=== PATIENT | female | born 1985 | race African-American/Black ===

== ENCOUNTER 2020-10-20 17:05 | Emergency (ER) | payer MEDICAID, OTHER ==
[~2020-10-20] VITALS: Ht 160 cm; Wt 62.0 kg
[2020-10-20] MEDS: ACETAMINOPHEN 500MG TABLET PO ONE (19:13)
[2020-10-20 19:23] LABS: CLARITY URINE CLEAR (CLEAR); COLOR URINE YELLOW (YELLOW); KETONES URINE TRACE (NEGATIVE); LEUKOCYTE ESTERASE URINE TRACE (NEGATIVE); NITRITE URINE NEGATIVE (NEGATIVE); OCCULT BLOOD URINE NEGATIVE (NEGATIVE); PROTEIN URINE TRACE (NEGATIVE); SPECIFIC GRAVITY URINE 1.029 (1.005-1.030)
[2020-10-20 23:03] VITALS: BP 112/70
== END 2020-10-20 23:10 | disposition home or self-care (01) ==
LOC: ER 17:05
DX: O23.41 Unspecified infection of urinary tract in pregnancy, first trimester (principal); Z3A.18 18 weeks gestation of pregnancy
CPT/HCPCS: 76805; 81003; 99284

== ENCOUNTER 2021-03-07 12:19 | Inpatient (IN) | payer MEDICAID ==
[~2021-03-07] VITALS: Ht 160 cm; Wt 72.1 kg
[2021-03-07] MEDS ORDERED: DEXT 5%/LR + PITOCIN 20UNITS/L 1,000 ML IV SCH ×2 (13:30→21:15)
[2021-03-07] MEDS ORDERED: NALOXONE HCL 0.4 MG/ML 1ML VIAL IM PRN (13:30)
[2021-03-07] MEDS ORDERED: RHO(D) IMMUNE GLOBULIN 300 MCG/SYR IM SCH (13:30)
[2021-03-07] MEDS ORDERED: CARBOPROST TROMETHAMINE 250 MCG/ML AMPUL IM PRN (13:30)
[2021-03-07] MEDS ORDERED: LACTATED RINGERS 1,000 ML IV SCH (13:30)
[2021-03-07] MEDS ORDERED: METHYLERGONOVINE MALEATE 0.2 MG/ML IM PRN (13:30)
[2021-03-07 14:04] LABS: CLARITY URINE CLEAR (CLEAR); COLOR URINE YELLOW (YELLOW); KETONES URINE TRACE (NEGATIVE); LEUKOCYTE ESTERASE URINE NEGATIVE (NEGATIVE); NITRITE URINE NEGATIVE (NEGATIVE); OCCULT BLOOD URINE NEGATIVE (NEGATIVE); PH URINE 6.5 (4.5-8.0); PROTEIN URINE NEGATIVE (NEGATIVE); SPECIFIC GRAVITY URINE 1.026 (1.005-1.030)
[2021-03-07 14:16] LABS: BASOPHILS % 0.5 % (0.0-2.0); EOSINOPHILS % 0.6 % (0.0-5.0); HEMATOCRIT. 36.2 % (36.0-48.0); HEMOGLOBIN. 12.3 g/dL (12.0-16.0); LYMPHOCYTES % 18.3 % (20.0-50.0); MEAN CORPUSCULAR HEMOGLOBIN 34.2 pg (28.0-32.0); MEAN CORPUSCULAR VOLUME 100.5 fL (81.0-99.0); MEAN PLATELET VOLUME 9.2 fl (7.4-10.4); MONOCYTES % 3.8 % (2.0-8.0); NEUTROPHILS % 76.8 % (40.0-76.0); PLATELET 209 x1000/uL (130-400); RED CELL DISTRIBUTION WIDTH 13.9 % (11.6-14.6)
[2021-03-07 14:27] LABS: INR 0.9; PARTIAL THROMBOPLASTIN TIME 25.6 sec (23.4-31.0); PROTHROMBIN TIME 9.8 sec (9.6-11.0)
[2021-03-07 14:44] LABS: *AMPHETAMINES SCREEN URINE NEGATIVE (NEGATIVE); *BARBITURATES SCREEN URINE NEGATIVE (NEGATIVE); *BENZODIAZEPINES SCREEN URINE NEGATIVE (NEGATIVE)
[2021-03-07 14:45] LABS: *COCAINE SCREEN URINE NEGATIVE (NEGATIVE); CANNABINOID URINE SCREEN NEGATIVE (NEGATIVE); METHADONE URINE SCREEN NEGATIVE (NEGATIVE); OPIATES URINE SCREEN NEGATIVE (NEGATIVE); PHENCYCLIDINE URINE SCREEN NEGATIVE (NEGATIVE)
[2021-03-07 15:25] LABS: HEPATITIS B SURFACE ANTIGEN NEGATIVE
[2021-03-07] MEDS ORDERED: CITRIC ACID/SODIUM CITRATE SOLN 30ML UDC PO NR (19:00)
[2021-03-07] MEDS ORDERED: MORPHINE SULFATE/PF 1MG/ML 10ML AMP ONE (19:26)
[2021-03-07] MEDS ORDERED: KETOROLAC 60MG/2ML VIAL IM ONE (19:28)
[2021-03-07] MEDS ORDERED: ONDANSETRON HCL 4MG/2ML INJ ONE (19:28)
[2021-03-07] MEDS ORDERED: DEXAMETHASONE 4MG/ML 1ML VIAL ONE (19:28)
[2021-03-07] MEDS ORDERED: EPHEDRINE SULFATE 50MG/ML VIAL ONE (19:29)
[2021-03-07] MEDS ORDERED: CEFAZOLIN SODIUM 1000MG/VIAL ONE (19:29)
[2021-03-07] MEDS ORDERED: OXYTOCIN 10 UNITS/ML 1ML ONE ×2 (19:29→19:34)
[2021-03-07] MEDS ORDERED: NALOXONE HCL 0.4 MG/ML 1ML VIAL IV PRN ×2 (20:32→20:45)
[2021-03-07] MEDS ORDERED: DIPHENHYDRAMINE 50MG/ML VIAL IM PRN (20:45)
[2021-03-07] MEDS ORDERED: HYDROCODONE/ACETAMINOPHEN 5/325MG TABLET PO PRN (21:15)
[2021-03-07] MEDS ORDERED: IBUPROFEN 400MG TABLET PO PRN (21:15)
[2021-03-07] MEDS ORDERED: ONDANSETRON HCL 4MG/2ML INJ IV PRN (21:15)
[2021-03-07] MEDS ORDERED: LANOLIN OINT 7GM TUBE TOP PRN (21:15)
[2021-03-07] MEDS ORDERED: BISACODYL 10MG SUPP PR PRN (21:15)
[2021-03-07 23:00] VITALS: BP 114/80
[2021-03-07 23:30] VITALS: BP 119/64
[2021-03-07] MEDS: DIPHENHYDRAMINE 50MG/ML VIAL IV PRN (23:53)
[2021-03-08 00:05] VITALS: BP 115/78
[2021-03-08 04:00] VITALS: BP 112/64
[2021-03-08 06:36] LABS: BASOPHILS % 0.3 % (0.0-2.0); EOSINOPHILS % 0.1 % (0.0-5.0); HEMATOCRIT. 32.2 % (36.0-48.0); HEMOGLOBIN. 11.1 g/dL (12.0-16.0); LYMPHOCYTES % 8.5 % (20.0-50.0); MEAN CORPUSCULAR HEMOGLOBIN 34.5 pg (28.0-32.0); MEAN CORPUSCULAR VOLUME 99.8 fL (81.0-99.0); MEAN PLATELET VOLUME 8.9 fl (7.4-10.4); MONOCYTES % 3.7 % (2.0-8.0); NEUTROPHILS % 87.4 % (40.0-76.0); PLATELET 171 x1000/uL (130-400); RED BLOOD CELL COUNT 3.23 mill/uL (4.2-5.4); RED CELL DISTRIBUTION WIDTH 13.6 % (11.6-14.6)
[2021-03-08 08:00] VITALS: BP 101/51
[2021-03-08] MEDS ORDERED: DIPHENHYDRAMINE 50MG/ML VIAL IV PRN (08:45)
[2021-03-08] MEDS ORDERED: NALOXONE HCL 0.4MG/ML VIAL IV PRN (08:45)
[2021-03-08] MEDS: DIPHENHYDRAMINE 50MG/ML VIAL IV PRN ×2 (09:10→09:12)
[2021-03-08] MEDS: DIPHENHYDRAMINE 25MG CAPSULE PO PRN ×2 (13:10→20:58)
[2021-03-08] MEDS: IBUPROFEN 800MG TABLET PO PRN ×2 (16:36→22:47)
[2021-03-08 16:57] VITALS: BP 96/50
[2021-03-08 19:30] VITALS: BP 102/59
[2021-03-08] MEDS: DOCUSATE SODIUM 100MG CAPSULE PO SCH (20:58)
[2021-03-08] MEDS: SIMETHICONE 80MG TABLET CHEW PO SCH (20:59)
[2021-03-09 04:00] VITALS: BP 111/64
[2021-03-09] MEDS: FERROUS SULFATE 325MG TABLET PO SCH ×3 (08:06→17:30)
[2021-03-09] MEDS: IBUPROFEN 800MG TABLET PO PRN ×3 (08:06→22:34)
[2021-03-09] MEDS: SIMETHICONE 80MG TABLET CHEW PO SCH ×4 (08:07→20:49)
[2021-03-09 08:21] VITALS: BP 116/76
[2021-03-09 16:30] VITALS: BP 137/68
[2021-03-09 20:00] VITALS: BP 103/62
[2021-03-09] MEDS: DOCUSATE SODIUM 100MG CAPSULE PO SCH (20:48)
[2021-03-09] MEDS: DIPHENHYDRAMINE 25MG CAPSULE PO PRN (22:34)
[2021-03-09 23:57] VITALS: BP 107/51
[2021-03-10 04:00] VITALS: BP 111/62
[2021-03-10] MEDS: IBUPROFEN 800MG TABLET PO PRN (04:33)
[2021-03-10] MEDS: SIMETHICONE 80MG TABLET CHEW PO SCH (08:22)
[2021-03-10] MEDS: FERROUS SULFATE 325MG TABLET PO SCH (08:22)
[2021-03-10 08:30] VITALS: BP 129/83
[2021-03-10] MEDS ORDERED: HYDR-4001 PO (08:38)
[2021-03-10] MEDS ORDERED: IBUP-2030 PO (08:38)
== END 2021-03-10 11:15 | disposition home or self-care (01) | DRG 539 ==
LOC: 8 EST LDRP 12:19 → 8EST 23:44
PROVIDERS: ADMIT Specialist; ATTEND Specialist
PROC: 0UB70ZZ Excision of Bilateral Fallopian Tubes, Open Approach (ICD-10-PCS; principal; 2021-03-07)
PROC: 10D00Z1 Extraction of Products of Conception, Low, Open Approach (ICD-10-PCS; 2021-03-07)
DX: O34.211 Maternal care for low transverse scar from previous cesarean delivery (principal); O99.324 Drug use complicating childbirth; O99.334 Smoking (tobacco) complicating childbirth; F17.210 Nicotine dependence, cigarettes, uncomplicated; F12.10 Cannabis abuse, uncomplicated; Z30.2 Encounter for sterilization; Z37.0 Single live birth; Z3A.39 39 weeks gestation of pregnancy; Z20.822 Contact with and (suspected) exposure to COVID-19
CPT/HCPCS: 36415; 80305; 81003; 85025; 86592; 86703; 86762; 86850; 86900; 86920; 87340; 87426; 88302; 88307; 99281; C1893; J0690; J1100; J1200; J1885; J2274; J2405; J2590; J3490; J7120; Q0163